=== PATIENT | male | born 1945 | race Caucasian/White ===

== ENCOUNTER 2023-09-19 08:58 | Outpatient (CLI) | payer MEDICARE, SELFPAY ==
--- NOTE | 2023-09-19 11:30 | NEURO_ITS ---
Impression: # Complains of left 4th and 5th finger numbness with difficulty to relax hand. # No Carpal Tunnel Syndrome. # Left ulnar neuropathy across the elbow. # Mildly abnormal needle/EMG exam without myotonia or fibrillations. Nerve Conduction Studies Anti Sensory Summary Table Stim Site NR Peak (ms) P-T Amp (?V) Site1 Site2 Delta-P (ms) Dist (cm) Vaibhav (m/s) Left Median Anti Sensory (2-3nd Digit) Wrist 2.6 43.2 Wrist 2-3nd Digit 2.6 14.0 54 Wrist 2.8 33.3 Wrist 2-3nd Digit 2.6 14.0 54 Left Radial Anti Sensory (Base 1st Digit) Wrist 2.0 13.7 Wrist Base 1st Digit 2.0 0.0 Left Ulnar Anti Sensory (5th Digit) NO RESPONSE Wrist NR Wrist 5th Digit 14.0 Motor Summary Table Stim Site NR Onset (ms) O-P Amp (mV) Site1 Site2 Delta-0 (ms) Dist (cm) Vaibhav (m/s) Left Median Motor (Abd Poll Brev) Wrist 2.8 2.0 Elbow Wrist 4.5 26.0 58 Elbow 7.3 1.5 Left Ulnar Motor (Abd Dig Minimi) Wrist 2.3 4.0 A Elbow Wrist 6.5 30.0 46 A Elbow 8.8 2.6 B Elbow Wrist 3.6 21.0 58 B Elbow 5.9 2.6 F Wave Studies NR F-Lat (ms) L-R F-Lat (ms) Left Median (Mrkrs) (Abd Poll Brev) 28.05 Left Ulnar (Mrkrs) (Abd Dig Min) 29.17 EMG Side Muscle Nerve Root Ins Act Fibs Amp Dur Recrt Comment Left 1stDorInt Ulnar C8-T1 Nml Nml Nml >12ms +2 Left Ext Indicis Radial (Post Int) C7-8 Nml Nml Nml Nml Nml Left Ext Digitorum Radial (Post Int) C7-8 Nml Nml Nml Nml Nml Left BrachioRad Radial C5-6 Nml Nml Nml Nml Nml Left PronatorTeres Median C6-7 Nml Nml Nml Nml Nml Left Abd Poll Brev Median C8-T1 Nml Nml Nml Nml Nml Left ABD Dig Min Ulnar C8-T1 Nml Nml Nml >12ms +2 MTDD
== END 2023-09-19 08:59 | disposition home or self-care (01) ==
PROVIDERS: PCP Internal Medicine Infectious Disease; Visit Provider Internal Medicine Infectious Disease
DX: G62.9 Polyneuropathy, unspecified (principal); G56.22 Lesion of ulnar nerve, left upper limb
CPT/HCPCS: 95886; 95909

== ENCOUNTER 2024-03-07 13:38 | Outpatient (CLI) | payer MEDICARE, SELFPAY ==
--- NOTE | ~2024-03-07 | PE_ITS ---
EXAMINATION: PET_PETPSMAST_PT DATE: 03/07/2024 15:54 INDICATION: Prostate cancer TECHNIQUE: 4.956 mCi of Illucix Ga-68([id number]) was administered i.v. Low dose computed parviz graphy (CT) images were acquired from the base of the brain to the base of the brain to the proximal thighs for attenuation correction and anatomic localization. Positron emission tomography (PET) image s were acquired in the same distribution beginning 82 minutes after injection. Images including fused PET/CT images were reconstructed in axial, coronal, and sagittal planes. Automated exposure control technique was employed. The dose-length product was 1162.07mGy-cm. COMPARISON: None FINDINGS: Head/neck: Typical pattern of symmetric physiologic increased activity in the lacrimal, parotid and submandibula r glands as well as along the mucosa of the nasal and oral cavities, pharynx and hypopharynx. No path ologically enlarged cervical lymphadenopathy or suspicious foci of increased uptake in the visualized head or neck. Chest: Mild dependent atelectasis in bilateral lower lobes. Small calcified nodule at the lingula consistent with old granulomatous disease. No suspicious pulmonary nodules, pneumonia, pulmonary edema or pleur al effusion. Heart size is normal. Atherosclerotic coronary artery calcifications. No pericardial eff usion. Thoracic aorta is normal in caliber. No pathologically enlarged or PSMA avid thoracic lymphade nopathy. Small sliding-type hiatal hernia. Abdomen/pelvis/proximal thighs: Physiologic renal accumulation and excretion of activity in the kidneys, bladder and along portions o f ureters. There is a focus of increased uptake with maximal SUV of 12.6 positioned inferiorly and sl ightly to the left of midline in the enlarged prostate which measures 6.0 x 4.7 cm. Normal degree and slightly heterogenous pattern of increased uptake throughout the liver and spleen without radiologic correlate or dominant PSMA avid lesion. The gallbladder, pancreas and bilateral adrenal glands are n ormal. Moderate uptake scattered throughout the bowels with typical duodenal and proximal jejunal pre dominance and without radiologic correlate, also likely physiologic. No other abnormal foci of increa sed uptake or pathologically enlarged lymphadenopathy in the abdomen, pelvis or proximal thighs. Musculoskeletal: Severe cervical and lumbar spondylosis and moderate intervening thoracic spondylosis. Mild T9 and T10 10 compression fractures. There are no suspicious lytic, blastic or PSMA avid bone lesions to sugges t osseous metastatic disease. IMPRESSION: 1. Region of increased uptake centrally within the enlarged prostate consistent with primary prostate cancer. No evident metastatic disease. Reviewed, dictated and finalized at location A. [facility] [employer]
--- OUTSIDE RECORDS SUMMARY | 2024-03-07 14:21 | XMS_ITS | Data Portability ---
Author Organization [place] [facility], Main Office Address [address] [place] [address] Assessment Encounter Date Assessment Date Assessment LastModified by Organization Details LastModified Time 09/20/2023 09/20/2023 Assessment: BRENDA PLMD Narcolepsy Hypoventilation Plan: The following were reviewed and explained to the patient: primary care/referral note General information on sleep disordered breathing, evaluation of sleep disordered breathing, treatment with PAP therapy, and living with PAP therapy were covered. Chapter 1 of educational DVD was shown. PSG is medically necessary to determine the degree of and management of sleep apnea. We discussed with the patient the impact of weight on: Sleep disordered breathing Hypertension GREGG We discussed with the patient the benefit of PAP therapy on: Sleep disordered breathing Hypertension GREGG Educated the patient on sleep hygiene measures. Relaxing rituals to rest easy, understanding foods with positive and negative impact on sleep, creating a peaceful sleep environment, timing of exercise, using herbal sleep aids, and practicing sleep-friendly meditation were covered. To determine how much sleep is needed, the patient will assess where he falls on the spectrum, examine what lifestyle factors such as work schedules and stress are affecting the quality and quantity of sleep. In general, adults need 7-9 hours of sleep. Educated the patient regarding foods that promote sleep. These include but are not limited to cherries, bananas, toast, oatmeal, and warm milk. Educated the patient regarding foods and drinks to avoid before bedtime. These include but are not limited to aged cheese, chocolate, spicy foods, tomato-based sauces, soy, ginseng tea and processed meat. Advocated influenza vaccination annually and pneumonia vaccination TABITHA. Advocated weight loss through diet and exercise. Patient's ideal body weight according to height and gender is up to 140 lbs. Encouraged patient to adjust caloric intake to maintain/achieve ideal body weight, emphasizing on fruits, vegetables, whole grains, and fat-free or low-fat products. These include lean meats, poultry, fish, beans, eggs, and nuts and foods that are low in saturated fats, trans-fats, cholesterol, salt (sodium), and glycemic index. Stressed the importance of regular exercise up to the patient's capacity limits. In this case, we recommend 20 min daily walking, 2 days a week of resistance training. Patient to monitor BP daily and bring records to PCP for further management. Follow-up: 1 week after diagnostic sleep study [email or web address] Not available 09/20/2023 13:20:54 Plan of Treatment Reminders Order Date Submit Date Provider Last Modified By Organization Details Last Modified Time Details Appointments None recorde d. Lab None recorde d. Referral None recorde d. Procedures None recorde d. Surgeries None recorde d. Imaging polysom nogram, diagnos tic, 6 yrs or older 024 09/20/19 24 [email or web address] [facility], [address] [place], [address], 4 10:10:05 Medication Orders None recorde d. Patient TargetsNo targets recorded. Patient InstructionsNo instructions recorded. Reason for Referral None Reported. Problems Name Problem SNOMED Code Status Onset Date Resolution Date Notes Provider Name and Address Organization Details Recorded Time Benign prostatic hyperplasia 841607571 Active Not Available 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 Medical Equipment None Reported. Allergies Allergen ID Allergen Name Allergen Category Reaction Reaction Severity Criticality Documentation Date Start Date Code Code System Note Provider Name and Address Organization Details Recorded Time 96561 Flomax medicatio n dizziness Not available Not available 09/03/2023 19195 3 RxNorm Dangelo Ray MD [address], [address], [place], [address] [place] [address] - [facility] 14:57:23 Medications Name Sig Start Date Stop Date Status Note LastModified by Organization Details LastModified Time losartan 50 mg tablet TAKE ONE TABLET BY MOUTH EVERY MORNING FOR BLOOD PRESSURE active Not Available Not Available No t Available tamsulosin 0.4 mg capsule TAKE 1 CAPSULE DAILY active Not Available Not Available No t Available Cipro 500 mg tablet Take 1 tablet(s) every 12 hours by oral route starting one day before the biopsy. 09/02 completed Not Available Not Available Not Available losartan 25 mg tablet TAKE ONE TABLET BY MOUTH EVERY DAY FOR BLOOD PRESSURE 09/19 completed Not Available Not Available Not Available Vigamox 0.5 % eye drops 09/02 completed Not Available Not Available Not Available Boostrix Tdap 2.5 Lf unit-8 mcg-5 Lf/0.5 mL intramuscul ar syringe 09/02 completed Not Available Not Available Not Available Zostavax (PF) 19,400 unit/0.65 mL subcutaneou s suspension 09/02 completed Not Available Not Available Not Available Durezol 0.05 % eye drops 09/02 completed Not Available Not Available Not Available Prevnar 13 (PF) 0.5 mL intramuscul ar syringe 09/02 completed Not Available Not Available Not Available Suprep Bowel Prep Kit 17.5 gram-3.13 gram-1.6 gram oral solution 09/02 completed Not Available Not Available Not Available Ilevro 0.3 % eye drops,suspe nsion 09/02 completed Not Available Not Available Not Available Fluvirin 9606-9050 45 mcg (15 mcg x 3)/0.5 mL intramuscul ar suspension 09/02 completed Not Available Not Available Not Available Fluvirin 2333-3059 45 mcg (15 mcg x 3)/0.5 mL intramuscul ar suspension 09/02 completed Not Available Not Available Not Available Fluzone High-Dose 9039-7184 (PF) 180 mcg/0.5 mL intramuscul ar syringe 09/02 completed Not Available Not Available Not Available Vitals Date Recorded Body weight Body mass index (BMI) Body height Body temperature Heart rate Oxygen saturation Oxygen saturation in Arterial blood by Pulse oximetry Systolic blood pressure Diastolic blood pressure Provider Name and Address Organization Details Last Updated DateTime 61764.1 7 g 36.6 kg/m2 162.56 cm 98.2 [degF] 67 /min 97 % 97 % 124 mm[Hg] 70 mm[Hg] Daniella Durand MA [facility] 12:44:55 Date Recorded Heart rate Respiratory rate Provider N sherry and Address Organization Details Last Updated DateTime 09/20/2023 67 /min 15 /min Dangelo Ray MD [address] [facility], [facility] [address], [place], [address], [facility] 09/20/2023 13:29:01 Social History Question Answer Notes LastModified by Organizat ion Details LastModified Time Tobacco Smoking Status Never Smoker Daniella Durand MA null, [place] [employer] [facility] 09/20/2023 12:40:41 What Is Your Level Of Alcohol Consumption? Occasional Information not available 09/20/2023 What Is Your Level Of Caffeine Consumption? Occasional Information not available 09/20/2023 In The 14 Days Before Symptom Onset, Have You Had Close Contact With A Laboratory-confirm ed COVID-19 While That Case Was Ill? No Information n ot available 09/20/2023 In The 14 Days Before Symptom Onset, Have You Had Close Contact With A Person Who Is Under Investigation For COVID-19 While That Person Was Ill? No Information not available 09/20/2023 What Type Of Diet Are You Following? REGULAR Information n ot available 09/20/2023 Do You Have An Electrostatic Air Filter? No Information not available 09/20/2023 Do You Have A Humidifier? No Information not available 09/20/2023 Do You Have Moisture Problems In Your Home? No Information not available 09/20/2023 What Was The Date Of Your Most Recent Tobacco Screening? 09/20/2023 Information not available 09/20/2023 Do You Have Any Pets? No Information not available 09/20/2023 Do You Use Your Seat Belt Or Car Seat Routinely? Yes Information not available 09/20/2023 Do You Have Smoke And Carbon Monoxide Detectors In Your Home? Yes Information not available 09/20/2023 Are You Passively Exposed To Smoke? No Information no t available 09/20/2023 Do You Feel Stressed (tense, Restless, Nervous, Or Anxious, Or Unable To Sleep At Night)? [id number] Information not available 09/20/2023 Do You Use Any Illicit Or Recreational Drugs? No Information not available 09/20/2023 Do You Use Sunscreen Routinely? Yes Information not available 09/20/2023 Have You Recently Traveled Abroad? No Information not available 09/20/2023 Do You Have Any Dietary Restrictions? No Information not available 09/20/2023 Sex: Unknown Functional Status Question Answer Note LastModified by Organization D etails LastModified Time What is your exercise level? Moderate Information not available 09/20/2023 Mental Status None recorded. Family History Relationship Description Onset Age of this Age Resolved Age Notes LastModified by Organization Details LastModified Time Mother Cerebrovascu lar accident [email or web address] Not available 14:51:35 Mother Coronary arterioscler osis [email or web address] Not available 2023 14:51:46 Mother Diabetes mellitus [email or web address] Not available 2023 14:51:53 Mother Hypertensive disorder [email or web address] Not available 2023 14:52:18 Mother Hyperlipidem ia [email or web address] Not available 2023 14:52:33 Mother Myocardial infarction [email or web address] Not available 09/02 14:52:42 Sister Migraine [email or web address] Not available 0 09/03/2023 14:54:31 Maternal Grandfather Coronary arterioscler osis [email or web address] Not available 2023 13:21:44 Maternal Grandfather [employer] workers' pneumoconios is [email or web address] Not available 2023 13:21:58 Maternal Grandmother Alzheimer's disease [email or web address] Not available 2023 13:22:14 Paternal Grandfather Myocardial infarction [email or web address] Not available 09/19 13:22:27 Paternal Grandmother Congestive heart failure [email or web address] Not available 2023 13:23:08 Paternal Aunt Malignant tumor of lung [email or web address] Not available 2023 13:23:52 Father Malignant tumor of prostate [email or web address] Not available 2023 13:24:17 Brother AIDS [email or web address] Not available 13:24:43 Medical History No medical history recorded. Past Encounters Encounter ID Performer Location Encounter Start Date Encounter Closed Date Diagnosis/Indication Diagnosis SNOMED-CT Code Diagnosis ICD10 Code Diagnosis Note [id number] Dangelo Ray MD [facility] [address] [address] 09/20/2023 12:08:31 09/21/2023 09:14:45 Sleep apnea 34462112 G47.30 G47.33 G47.36 G47.61 Health Concerns Section Related Observation LastModified by Organization Detai ls LastModified Time None Recorded Concern Status LastModified by Organization Details LastModified Time None Recorded Advance Directives Directive None Recorded Payers Encounter Date Sequence Insurance Name Policy Number Policy Vargas Covered Member ID Vargas Member ID Guarantor Name 09/20/2023 1 [employer] (MEDICARE REPLACEMENT PPO) [id number] 1 Dwight Mchugh [id number] Dwight Mchugh Notes Date Note Type Note Provider Name and Address Organization Details Recorded Time 09/20/2023 text/html Primary care/Referring provider: Genesis Castañeda MD At home, the patient sleeps from 12:30 am to 8:30 am and wakes up by . Snoring: moderate, since 1980s. Snorting: no Choking: no Coughing: yes Gasping: no Gagging: no Sighing: no Witnessed apnea: yes Twitching or jerking of leg(s), arm(s), body, head: yes Teeth grinding: no Teeth clenching: no Sleeptalking: no Sleepwalking: no Sleep crying: no Bedwetting: no Tongue/lip/gum/anne marie k biting: no Sleeping with open mouth: yes Sleep paralysis: no Hypnagogic hallucinations: no Hypnopompic hallucinations: no Vivid dreams: no Difficulty with sleep onset: no Difficulty with sleep maintenance: yes Sleep interruptions: nocturia x 2 Patient wakes up with: fatigue, xerostomia, hoarse voice, dexterity impairment Daytime cataplexy: no Morning hypersomnolence: no Afternoon hypersomnolence: yes Caffeine sources in diet: coffee 3 cups per day, tea 1.5 glass per day, soda 1/3 glass per per day, chocolate 1 candy bar per week Associated medical and psychiatric conditions: Congestive heart failure: no Coronary artery disease: no Myocardial infarction: no Hypertension: yes Stroke: no Bronchial asthma: no Chronic obstructive pulmonary disease: no Depression: no Bipolar disorder: no Anxiety: no Panic disorder: no Posttraumatic stress disorder: no Attention deficit and hyperactivity disorder: no Obsessive Compulsive disorder: no Schizophrenia: no Schizoaffective disorder: no Personality disorder: no Chronic analgesic use: no Chronic sedative/hypnotic use: no EPWORTH SLEEPINESS SCALE (ESS) CHANCE OF DOZING SCORE 0 = would never doze 1 = slight chance of dozing 2 = moderate chance of dozing 3 = high chance of dozing SITUATION AND CHANCE OF DOZING Sitting and reading - 2 Watching television - 2 Sitting inactive in a public place (e.g. a theater or meeting) - 0 As a passenger in a car for an hour without a break - 2 Lying down to rest in the afternoon when circumstances permit - 2 Sitting and talking to someone - 0 Sitting quietly after lunch without alcohol - 2 In a car, while stopped for a few minutes in the traffic - 0 TOTAL SCORE 10 Subjectively, patient has a moderate chance of dozing. Dangelo Ray MD [address] [place] [address], [address], [place] [facility] [employer] 09/20/2023 13:31:21
--- OUTSIDE RECORDS SUMMARY | 2024-03-07 14:21 | XMS_ITS | Data Portability ---
Author Organization [facility] JESSICA Address [address] [facility] [place] [address] Assessment No assessment recorded. Plan of Treatment Reminders Order Date Submit Date Provider Last Modified By Organization Details Last Modified Time Details Appointments None recorded. Lab PSA, total, serum or plasma 2023 024 [facility], [facility], [address], [place], [address], 4 15:10:27 noninvasive colorectal cancer DNA + occult blood screening, QL, stool 2023 024 [facility] [address], [address], [place], [address], 4 16:46:54 CBC w/ auto diff 2023 024 [facility], [facility], [address], [place], [address], 4 10:20:43 urinalysis, dipstick 2023 024 [facility], [facility], [address], [place], [address], 5 12:48:41 CMP, serum or plasma 2023 024 [facility], [facility], [address], [place], [address], 4 10:20:40 lipid panel, serum 2023 024 [facility], [address], [address], [place], [address], 4 10:20:39 vitamin D, 25-hydroxy, total, serum 2023 024 [facility], [address], [address], [place], [address], 4 10:20:44 vitamin B12, serum 2023 024 [facility], [address], [address], [place], [address], 4 10:20:42 TSH, ultra-sensi tive, serum 2023 024 [facility], [address], [address], [place], [address], 4 10:20:43 HbA1c (hemoglobin A1c), blood 2023 [facility], [address], [address], [place], [address], 4 10:20:41 Referral sleep medicine referral - Apneic episodes during the recent prostate biopsy 2023 MILDRED Ray MD, [address] [place], [address], 4 12:49:25 orthopedic surgeon referral - L. ulnar neuropathy 2023 [facility], [address], [place], [address], 4 14:35:54 Procedures None recorded. Surgeries None recorded. Imaging XR, hip, unilateral, 2 or 3 view - Pain 2023 024 [facility] ([facility]), [address] [place], [address], 16:41:32 electromyog isabel + nerve conduction study - Chronic numbness of the 4th and 5th fingers of the left hand 2023 024 [facility] (Cardiology [facility]), [address] [facility] [address] [place] [address], [address], 10:06:26 Medication Orders losartan 25 mg tablet 2022 024 [facility], [address], [id number], 18:21:20 Patient TargetsNo targets recorded. Patient Instructions Encounter Date Encounter Id Patient Instructions Last Modified By Organization Details Last Modified Time 06/15/2022 [id number] A healthy lifestyle: care instructions [facility] Not available 06/15/2022 13:00:34 A healthy lifestyle: care instructions [facility] Not available 06/15/2022 13:00:34 benign prostatic hyperplasia: care instructions [facility] Not available 06/15/2022 13:00:35 01/11/2023 [id number] A healthy lifestyle: care instructions [facility] Not available 01/11/2023 15:45:38 04/05/2023 [id number] learning about high blood pressure jhsieh Not available 04/05/2023 16:46:41 08/09/2023 [id number] sleep apnea: car e instructions [facility]ao Not available 08/09/2023 15:58:53 hearing loss: care instructions [facility] Not available 08/09/2023 15:59:08 learning about high blood pressure o[facility]ao Not available 08/09/2023 15:59:44 neuropathic pain : care instructions [facility] Not available 08/09/2023 15:57:21 body mass index: care instructions [facility] Not available 08/09/2023 15:36:41 learning about healthy weight oajao Not available 08/09/2023 15:36:42 Labs Cologuard a s previously ordered Sleep medicine Xray Follow up in 6 weeks oajao Not available 08/09/2023 16:00:58 09/21/2023 [id number] Orthopedics Lab s as previously ordered Follow up in 6 months and PRN oajao Not available 09/21/2023 15:12:58 Pt education on ulnar neuropathy oajao Not available 09/21/2023 15:30:00 Reason for Referral Sleep Medicine Referral for Sleep apnea Apneic episodes during the recent prostate biopsy Apneic episodes during the recent prostate biopsy Referring Physician: Genesis Castañeda, Internal Medicine, Encounter Date: 08/09/2023 Orthopedic Surgeon Referral for Ulnar neuropathy of left arm L. ulnar neuropathy L. ulnar neuropathy Referring Physician: Genesis Castañeda, Internal Medicine, Encounter Date: 09/21/2023 Results Created Date Observation Date Name Description Value Unit Range Abnormal Flag Note LastModifiedBy Organization Detail LastModifiedTime 04/05/19 24 04/06/2023 PROST ATE-S PECIF IC AG prostate specific Ag 9.1 NG/mL 0.0-4. 0 above high normal Theresa ECLIA metho dolog y. Accor ding to the Ameri can [employer] g[employer] iatio n, Serum PSA shoul d decre ase and remai n at undet ectab le level s after radic al prost atect padilla. The AUA defin es bioch emica l recur rence as an initi al PSA value 0.2 ng/mL or great er follo wed by a subse quent confi rmato ry PSA value 0.2 ng/mL or great er. Value s obtai sarika with diffe rent assay metho ds or kits canno t be used inter lexie nicole . Resul ts canno t be inter prete d as absol chilkat evide nce of the prese nce or absen ce of lila dewitt se. Not Available [facility] ([facility]) [address] [facility], [place], [address], 04/06/2023 15:10:27 09/22/19 24 09/23/2023 LIPID PANEL cholesterol, total 219 mg/dL 100-19 9 above high normal Not Available [facility] ([facility]) [address] [place], [address], 09/23/2023 10:20:39 09/22/19 24 09/23/2023 LIPID PANEL triglyceride s 104 mg/dL 0-149 Not Available [facility] ([facility]) [address] [place], [address], 09/23/2023 10:20:39 09/22/19 24 09/23/2023 LIPID PANEL HDL cholesterol 63 mg/dL >39 Not Available [facility]) [address] [place], [address], 09/23/2023 10:20:39 09/22/19 24 09/23/2023 LIPID PANEL VLDL cholesterol vidhya 18 mg/dL 5-40 Not Available [facility] ([facility]) [address] [place], [address], 09/23/2023 10:20:39 09/22/19 24 09/23/2023 LIPID PANEL LDL chol calc ([facility]) 138 mg/dL 0-99 above high normal Not Available [facility] ([facility]) [address] [place], [address], 09/23/2023 10:20:39 09/22/19 24 09/23/2023 COMP. METAB OLIC PANEL (14) glucose 105 mg/dL 70-99 above high normal Not Available [facility] ([facility]) [address] [place], [address], 09/23/2023 10:20:40 09/22/19 24 09/23/2023 COMP. METAB OLIC PANEL (14) BUN 14 mg/dL 8-27 Not Available [facility] ([facility]) [address] [place], [address], 09/23/2023 10:20:40 09/22/19 24 09/23/2023 COMP. METAB OLIC PANEL (14) creatinine 0.78 mg/dL 0.76-1 .27 Not Available [facility] ([facility]) [address] [facility], [place], [address], 09/23/2023 10:20:40 09/22/19 24 09/23/2023 COMP. METAB OLIC PANEL (14) eGFR 92 mL/mi n/1.7 3 >59 Not Available [facility] ([facility]) [address] [facility], [place], [address], 09/23/2023 10:20:40 09/22/19 24 09/23/2023 COMP. METAB OLIC PANEL (14) BUN/creatini ne ratio 18 10-24 Not Available [facility] ([facility]) [address] [facility], [place], [address], 09/23/2023 10:20:40 09/22/19 24 09/23/2023 COMP. METAB OLIC PANEL (14) sodium 140 mmol/ L 134-14 4 Not Available [facility] ([facility]) [address] [facility], [place], [address], 09/23/2023 10:20:40 09/22/19 24 09/23/2023 COMP. METAB OLIC PANEL (14) potassium 4.8 mmol/ L 3.5-5. 2 Not Available [facility] ([facility]) [address] [facility], [place], [address], 09/23/2023 10:20:40 09/22/19 24 09/23/2023 COMP. METAB OLIC PANEL (14) chloride 103 mmol/ L 96-106 Not Available [facility] ([facility]) [address] [facility], [place], [address], 09/23/2023 10:20:40 09/22/19 24 09/23/2023 COMP. METAB OLIC PANEL (14) carbon dioxide, total 23 mmol/ L 20-29 Not Available [facility] ([facility]) [address] [facility], [place], [address], 09/23/2023 10:20:40 09/22/19 24 09/23/2023 COMP. METAB OLIC PANEL (14) calcium 9.4 mg/dL 8.6-10 .2 Not Available [facility] ([facility]) [address] [facility], [place], [address], 09/23/2023 10:20:40 09/22/19 24 09/23/2023 COMP. METAB OLIC PANEL (14) protein, total 6.9 g/dL 6.0-8. 5 Not Available [facility] ([facility]) [address] [facility], [place], [address], 09/23/2023 10:20:40 09/22/19 24 09/23/2023 COMP. METAB OLIC PANEL (14) albumin 4.2 g/dL 3.8-4. 8 Not Available [facility] ([facility]) [address] [facility] [place], [address], 09/23/2023 10:20:40 09/22/19 24 09/23/2023 COMP. METAB OLIC PANEL (14) globulin, total 2.7 g/dL 1.5-4. 5 Not Available [facility] ([facility]) [address] [facility], [place], [address], 09/23/2023 10:20:40 09/22/19 24 09/23/2023 COMP. METAB OLIC PANEL (14) bilirubin, total 0.3 mg/dL 0.0-1. 2 Not Available [facility] ([facility]) [address] [facility], [place], [address], 09/23/2023 10:20:40 09/22/19 24 09/23/2023 COMP. METAB OLIC PANEL (14) alkaline phosphatase 45 IU/L 44-121 Not Available [facility]) [address] [place], [address], 09/23/2023 10:20:40 09/22/19 24 09/23/2023 COMP. METAB OLIC PANEL (14) AST (SGOT) 20 IU/L 0-40 Not Available [facility] ([facility]) [address] [place], [address], 09/23/2023 10:20:40 09/22/19 24 09/23/2023 COMP. METAB OLIC PANEL (14) ALT (SGPT) 22 IU/L 0-44 Not Available [facility] ([facility]) [address] [place], [address], 09/23/2023 10:20:40 09/22/19 24 09/22/2023 UNABL E TO VOID unable to void Commen t Patie nt unabl e to void. Urine to be colle cted at a later date. Not Available [facility] ([facility]) [address] [place], [address], 09/23/2023 10:20:41 09/22/19 24 09/23/2023 HEMOG LOBIN A1C hemoglobin A1C 6.1 % 4.8-5. 6 above high normal Predi abete s: 5.7 - 6.4 Diabe kaleb: >6.4 Glyce agatha contr ol for adult s with diabe kaleb: <7.0 Not Available [facility] ([facility]) [address] [place], [address], 09/23/2023 10:20:41 09/22/19 24 09/23/2023 VITAM IN B12 vitamin B12 650 pg/mL 232-12 45 Not Available [facility] ([facility]) [address] [place], [address], 09/23/2023 10:20:42 09/22/19 24 09/23/2023 TSH TSH 5.040 uIU/m L 0.450- 4.500 above high normal Not Available [facility] ([facility]) [address] [facility], [place], [address], 09/23/2023 10:20:43 09/22/19 24 09/23/2023 CBC WITH DIFFE RENTI AL/PL ATELE T WBC 5.8 x10e3 /uL 3.4-10 .8 Not Available [facility] ([facility]) [address] [facility], [place], [address], 09/23/2023 10:20:43 09/22/19 24 09/23/2023 CBC WITH DIFFE RENTI AL/PL ATELE T RBC 4.76 x10e6 /uL 4.14-5 .80 Not Available [facility] ([facility]) [address] [place], [address], 09/23/2023 10:20:43 09/22/19 24 09/23/2023 CBC WITH DIFFE RENTI AL/PL ATELE T hemoglobin 14.5 g/dL 13.0-1 7.7 Not Available [facility] ([facility]) [address] [place], [address], 09/23/2023 10:20:43 09/22/19 24 09/23/2023 CBC WITH DIFFE RENTI AL/PL ATELE T hematocrit 44.7 % 37.5-5 1.0 Not Available [facility] ([facility]) [address] [place], [address], 09/23/2023 10:20:43 09/22/19 24 09/23/2023 CBC WITH DIFFE RENTI AL/PL ATELE T MCV 94 fL 79-97 Not Available [facility] ([facility]) [address] [place], [address], 09/23/2023 10:20:43 09/22/19 24 09/23/2023 CBC WITH DIFFE RENTI AL/PL ATELE T MCH 30.5 pg 26.6-3 3.0 Not Available [facility] ([facility]) [address] [facility], [place], [address], 09/23/2023 10:20:43 09/22/19 24 09/23/2023 CBC WITH DIFFE RENTI AL/PL ATELE T MCHC 32.4 g/dL 31.5-3 5.7 Not Available [facility] ([facility]) [address] [facility], [place], [address], 09/23/2023 10:20:43 09/22/19 24 09/23/2023 CBC WITH DIFFE RENTI AL/PL ATELE T RDW 13.4 % 11.6-1 5.4 Not Available [facility] ([facility]) [address] [facility], [place], [address], 09/23/2023 10:20:43 09/22/19 24 09/23/2023 CBC WITH DIFFE RENTI AL/PL ATELE T platelets 265 x10e3 /uL 150-45 0 Not Available [facility] ([facility]) [address] [facility], [place], [address], 09/23/2023 10:20:43 09/22/19 24 09/23/2023 CBC WITH DIFFE RENTI AL/PL ATELE T neutrophils 52 % notest ab. Not Available [facility] ([facility]) [address] [facility], [place], [address], 09/23/2023 10:20:43 09/22/19 24 09/23/2023 CBC WITH DIFFE RENTI AL/PL ATELE T lymphs 33 % notest ab. Not Available [facility] ([facility]) [address] [facility], [place], [address], 09/23/2023 10:20:43 09/22/19 24 09/23/2023 CBC WITH DIFFE RENTI AL/PL ATELE T monocytes 9 % notest ab. Not Available [facility] ([facility]) [address] [facility], [place], [address], 09/23/2023 10:20:43 09/22/19 24 09/23/2023 CBC WITH DIFFE RENTI AL/PL ATELE T eos 5 % notest ab. Not Available [facility] ([facility]) [address] [facility], [place], [address], 09/23/2023 10:20:43 09/22/19 24 09/23/2023 CBC WITH DIFFE RENTI AL/PL ATELE T basos 1 % notest ab. Not Available [facility] ([facility]) [address] [facility], [place], [address], 09/23/2023 10:20:43 09/22/19 24 09/23/2023 CBC WITH DIFFE RENTI AL/PL ATELE T neutrophils (absolute) 3.0 x10e3 /uL 1.4-7. 0 Not Available [facility] ([facility]) [address] [facility], [place], [address], 09/23/2023 10:20:43 09/22/19 24 09/23/2023 CBC WITH DIFFE RENTI AL/PL ATELE T lymphs (absolute) 1.9 x10e3 /uL 0.7-3. 1 Not Available [facility] ([facility]) [address] [facility], [place], [address], 09/23/2023 10:20:43 09/22/19 24 09/23/2023 CBC WITH DIFFE RENTI AL/PL ATELE T monocytes(ab solute) 0.5 x10e3 /uL 0.1-0. 9 Not Available [facility] ([facility]) [address] [facility], [place], [address], 09/23/2023 10:20:43 09/22/19 24 09/23/2023 CBC WITH DIFFE RENTI AL/PL ATELE T eos (absolute) 0.3 x10e3 /uL 0.0-0. 4 Not Available [facility] ([facility]) [address] [facility], [place], [address], 09/23/2023 10:20:43 09/22/19 24 09/23/2023 CBC WITH DIFFE RENTI AL/PL ATELE T baso (absolute) 0.1 x10e3 /uL 0.0-0. 2 Not Available [facility] ([facility]) [address] [facility], [place], [address], 09/23/2023 10:20:43 09/22/19 24 09/23/2023 CBC WITH DIFFE RENTI AL/PL ATELE T immature granulocytes 0 % notest ab. Not Available [facility] ([facility]) [address] [facility], [place], [address], 09/23/2023 10:20:43 09/22/19 24 09/23/2023 CBC WITH DIFFE RENTI AL/PL ATELE T immature grans (abs) 0.0 x10e3 /uL 0.0-0. 1 Not Available [facility] ([facility]) [address] [place], [address], 09/23/2023 10:20:43 09/22/19 24 09/23/2023 VITAM IN D, 25-HY DROXY vitamin D, 25-hydroxy 57.8 NG/mL 30.0-1 00.0 Vitam in D defic iency has been defin ed by the Insti tute of Medic ine and an Endoc rine Socie ty pract ice guide line as a level of serum 25-OH vitam in D less than 20 ng/mL (1,2) . The Endoc rine Socie ty went on to furth er defin e vitam in D insuf ficie ncy as a level betwe en 21 and 29 ng/mL (2). 1. IOM (Inst itute of Medic ine). 2010. Elder ry refer ence re es for calci um and D. Arina bean [place]: The [facility] . 2. Leonard steiner MF, Carol Ann chaudhary [place], Kristina off-F errar i ASENCIO, et al. Evalu ation , treat ment, and preve ntion of vitam in D defic iency : an Endoc rine Socie ty clini vidhya pract ice guide line. JCEM. 2010; 96(7) :1911 -30. Not Available [facility] ([facility]) [address], [place], [address], 09/23/2023 10:20:44 09/20/19 24 09/19/2023 elect romyo gram + nerve condu ction study No observ ation record ed. [facility] [address], [place], [address], 09/27/2023 10:55:30 11/23/19 24 11/23/2023 XR, hip, unila teral , 2 or 3 view No observ ation record ed. [facility] [address], [place], [address], 12/01/2023 09:42:45 Result Notes None recorded. Problems Name Problem SNOMED Code Status Onset Date Resolution Date Notes Provider Name and Address Organization Details Recorded Time Sleep apnea 34885821 Active 2023 Genesis Castañeda MD Attn: Flavia pacheco,[address] [facility], [place], [address], [facility] 4 15:57:44 Essential hypertensio n 86976856 Active 2023 Genesis Castañeda MD Attn: Flavia g,[address] [facility], [place], [address], [facility] - [facility] 4 15:59:42 Ulnar neuropathy of left arm 1369875041201 07 Active 2023 Genesis Castañeda MD Attn: Flavia g,[address] [facility], [place], [address], [facility] 4 15:06:48 Local infection of wound 20339510 Active Verna Jeffery MD Attn: Flavia pacheco,[address] [facility], [place], [address], [place] [facility] 5 11:23:56 Benign prostatic hyperplasia 942538108 Active Verna Jeffery MD Attn: Flavia pacheco,[address] [facility], [place], [address], [place] [facility] 5 11:23:56 Lesion of skin of face 197668580805 Active Verna Jeffery MD Attn: Flavia pacheco,[address] [facility], [place], [address], [place] [facility] 5 11:23:56 Right sided chest pain 921932338 Active Verna Jeffery MD Attn: Flavia pacheco,[address] [facility], [place], [address], [place] [facility] 6 13:37:19 Problem Notes None recorded. Procedures Surgical History Date Name Laterality Status Provider Name and Address Organization Details Recorded Time prostate specific antigen measurement completed Sam Ernandez [place] [facility] 07/24/2020 11:36:27 Eye Surgery completed Sam Ernandez [place] [facility] 07/24/2020 11:23:57 Prostate Biopsy completed Sam Ernandez [place] [facility] 12/18/2014 10:32:13 Imaging Results Imaging Date Name Status LastModified by Organization Details LastModified Time 09/19/2023 electromyogram + nerve conduction study completed [facility] [address] [address], [place], [address], 09/27/2023 10:55:30 11/23/2023 XR, hip, unilateral, 2 or 3 view completed [facility] [address] [place], [address], 12/01/2023 09:42:45 Procedure Notes None recorded. Medical Equipment None Reported. Allergies Allergen ID Allergen Name Allergen Category Reaction Reaction Severity Criticality Documentation Date Start Date Code Code System Note Provider Name and Address Organization Details Recorded Time [id number] tamsulosi n medicatio n Not available Not available Not available 07/24/2020 85705 RxNorm Not Available Not Available Not Available [id number] Flomax medicatio n dizziness Not available Not available 12/18/2014 27034 3 RxNorm Not Available Not Available Not Available Medications Name Sig Start Date Stop Date Status Note LastModified by Organization Details LastModified Time losartan 50 mg tablet TAKE ONE TABLET BY MOUTH EVERY MORNING FOR BLOOD PRESSURE active Not Available Not Available No t Available Viagra 50 mg tablet Take 1 tablet every day by oral route at bedtime for 8 days. 12/04 completed Not Available Not Available Not Available sulfamethox azole 800 mg-trimetho prim 160 mg tablet Take 1 tablet every 12 hours by oral route with meals for 5 days. 07/24 completed Not Available Not Available Not Available tamsulosin 0.4 mg capsule 07/24 completed Not Available Not Available Not Available polymyxin B sulfate 10,000 unit-trimet hoprim 1 mg/mL eye drops 12/04 completed Not Available Not Available Not Available losartan 25 mg tablet Take 1 tablet every day by oral route as directed for 90 days. 03/29 completed Not Available Not Available Not Available Vigamox 0.5 % eye drops 07/24 completed Not Available Not Available Not Available saw palmetto active Not Available Not Available Not Available Zostavax (PF) 19,400 unit/0.65 mL subcutaneou s suspension 07/24 completed Not Available Not Available Not Available Durezol 0.05 % eye drops 07/24 completed Not Available Not Available Not Available Prevnar 13 (PF) 0.5 mL intramuscul ar syringe 12/04 completed Not Available Not Available Not Available Ilevro 0.3 % eye drops,suspe nsion 07/24 completed Not Available Not Available Not Available Vitals Date Recorded Body height Provider Name an d Address Organization Details Last Updated DateTime 06/15/2022 159.39 cm Regine De La Carlton agustin [place] - [facility] 06/15/2022 12:10:37 Date Recorded Body mass index (BMI) Body weight Provider Name and Address Organization Details Last Updated DateTime 06/15/2022 41.1 kg/m2 125973.25 g Regine Gallagher [facility] 06/15/2022 12:16:29 Date Recorded Oxygen saturation Oxygen saturation in Arterial blood by Pulse oximetry Provider Name and Address Organization Details Last Updated DateTime 06/15/2022 95 % 95 % Regine Zapien Cruz [facility] 06/15/2022 12:20:08 Date Recorded Heart rate Provider Name an d Address Organization Details Last Updated DateTime 06/15/2022 70 /min Regine Vargas [facility] 06/15/2022 12:20:11 Date Recorded Body height Provider Name an d Address Organization Details Last Updated DateTime 01/11/2023 159.39 cm Lizzette Chapman [facility] 01/11/2023 14:56:56 Date Recorded Body mass index (BMI) Body weight Provider Name and Address Organization Details Last Updated DateTime 01/11/2023 40.2 kg/m2 015630.28 g Lizzette Chapman [facility] 14:57:08 Date Recorded Heart rate Provider Name an d Address Organization Details Last Updated DateTime 01/11/2023 70 /min Lizzette Chapman [facility] 01/11/2023 14:58:36 Date Recorded Oxygen saturation Oxygen saturation in Arterial blood by Pulse oximetry Provider Name and Address Organization Details Last Updated DateTime 01/11/2023 96 % 96 % Lizzette Chapman [facility] 01/11 14:58:41 Date Recorded Body height Provider Name an d Address Organization Details Last Updated DateTime 04/05/2023 159.39 cm Lizzette Chapman [facility] 04/05/2023 16:08:36 Date Recorded Body mass index (BMI) Body weight Provider Name and Address Organization Details Last Updated DateTime 04/05/2023 40.5 kg/m2 999737.47 g Lizzette Chapman [facility] 16:08:51 Date Recorded Heart rate Provider Name an d Address Organization Details Last Updated DateTime 04/05/2023 77 /min Lizzette Chapman MA [facility] 04/05/2023 16:10:24 Date Recorded Oxygen saturation Oxygen saturation in Arterial blood by Pulse oximetry Provider Name and Address Organization Details Last Updated DateTime 04/05/2023 96 % 96 % Lizzette Chapman [place] Jose E [facility]ARRID[facility] 04/05 16:10:29 Date Recorded Body height Provider Name an d Address Organization Details Last Updated DateTime 08/09/2023 159.39 cm Johanne Stack MA [facility] 15:11:09 Date Recorded Body mass index (BMI) Body weight Provider Name and Address Organization Details Last Updated DateTime 08/09/2023 38.4 kg/m2 13064.44 g Johanne Stack MA [facility] 08/09/2023 15:11:22 Date Recorded Heart rate Provider Name an d Address Organization Details Last Updated DateTime 08/09/2023 66 /min Johanne Stack MA [facility] 15:18:14 Date Recorded Oxygen saturation Oxygen saturation in Arterial blood by Pulse oximetry Provider Name and Address Organization Details Last Updated DateTime 08/09/2023 98 % 98 % Johanne Stack MA [facility] 08/09/2023 15:18:16 Date Recorded Respiratory rate Provider Name a nd Address Organization Details Last Updated DateTime 08/09/2023 18 /min Johanne Stack MA [facility] 024 15:18:18 Date Recorded Body height Provider Name an d Address Organization Details Last Updated DateTime 09/21/2023 159.39 cm Johanne Stack MA [facility] 14:53:20 Date Recorded Body mass index (BMI) Body weight Provider Name and Address Organization Details Last Updated DateTime 09/21/2023 38.4 kg/m2 89619.44 g Johanne Stack MA [facility] 09/21/2023 14:53:29 Date Recorded Respiratory rate Provider Name a nd Address Organization Details Last Updated DateTime 09/21/2023 16 /min Johanne Stack MA [facility] 024 14:56:50 Date Recorded Heart rate Provider Name an d Address Organization Details Last Updated DateTime 09/21/2023 62 /min Johanne Stack [facility] 024 14:58:24 Date Recorded Oxygen saturation Oxygen saturation in Arterial blood by Pulse oximetry Provider Name and Address Organization Details Last Updated DateTime 09/21/2023 97 % 97 % Johanne Stack MA [facility] 09/21/2023 14:58:26 Date Recorded Body temperature Provider Name a nd Address Organization Details Last Updated DateTime 09/21/2023 97.6 [degF] Johanne Ricever [facility] 2023 14:59:07 Date Recorded Systolic blood pressure Diastolic blood pressure Provider Name and Address Organization Details Last Updated DateTime 06/15/2022 146 mm[Hg] 72 mm[Hg] Regine Gallagher [facility] 06/15/2022 12:19:57 Date Recorded Systolic blood pressure Diastolic blood pressure Provider Name and Address Organization Details Last Updated DateTime 01/11/2023 160 mm[Hg] 78 mm[Hg] Lizzette Chapman MA [facility] 07/2022 14:59:00 Date Recorded Systolic blood pressure Diastolic blood pressure Provider Name and Address Organization Details Last Updated DateTime 04/05/2023 160 mm[Hg] 66 mm[Hg] Lizzette Chapman MA [facility] 03/10 16:10:45 Date Recorded Systolic blood pressure Diastolic blood pressure Provider Name and Address Organization Details Last Updated DateTime 08/09/2023 140 mm[Hg] 70 mm[Hg] Johanne Stack MA [facility] 08/09/2023 15:17:57 Date Recorded Systolic blood pressure Diastolic blood pressure Provider Name and Address Organization Details Last Updated DateTime 09/21/2023 124 mm[Hg] 66 mm[Hg] Johanne Stack MA [facility] 09/21/2023 14:58:15 Social History Question Answer Notes LastModified by Organizat ion Details LastModified Time Tobacco Smoking Status Never Smoker [facility] 12/18/2014 10:32:12 Do You Have An Advance Directive? No Information not available 01/11/2023 What Is Your Level Of Alcohol Consumption? Occasional Information not available 12/18/2014 Are You Blind Or Do You Have Difficulty Seeing? Yes Wears Glasses Information not available 01/11/2023 What Is Your Level Of Caffeine Consumption? Moderate Information not available 01/11/2023 Are You Currently Employed? No Information not available 01/11/2023 Are You Deaf Or Do You Have Serious Difficulty Hearing? Yes Information not available 01/11/2023 What Type Of Diet Are You Following? REGULAR Information not available 01/11/2023 Do You Or Have You Ever Used E-cigarettes Or Vape? Never Used Electronic Cigarettes Information not available 07/24/2020 What Is The Highest Grade Or Level Of School You Have Completed Or The Highest Degree You Have Received? [id number] Information not available 01/11/2023 Are There Any Guns Present In Your Home? No Information not available 01/11/2023 What Was The Date Of Your Most Recent Tobacco Screening? 09/21/2023 Information not available 09/21/2023 What Is Your Relationship Status? Information not available 01/11/2023 Do You Use Your Seat Belt Or Car Seat Routinely? Yes Information not available 01/11/2023 Do You Have Smoke And Carbon Monoxide Detectors In Your Home? Yes Information not available 01/11/2023 Do You Or Have You Ever Used Smokeless Tobacco? Never Used Smokeless Tobacco Information not available 07/24/2020 Do You Feel Stressed (tense, Restless, Nervous, Or Anxious, Or Unable To Sleep At Night)? [id number] Information not available 01/11/2023 Do You Use Any Illicit Or Recreational Drugs? No Information not available 08/09/2023 Do You Use Sunscreen Routinely? No Information not available 01/11/2023 Has Tobacco Cessation Counseling Been Provided? Yes Information not available 07/24/2020 On What Date Was Tobacco Cessation Counseling Provided? 04/05/2023 Information not available 04/05/2023 Do You Or Have You Ever Used Any Other Forms Of Tobacco Or Nicotine? Yes One Cigar Information not available 07/24/2020 Sex: Male Functional Status Question Answer Note LastModified by Organizat ion Details LastModified Time Are you able to care for yourself? Yes Information not available 01/11/2023 What is your exercise level? Occasional Information not available 01/11/2023 Mental Status None recorded. Family History Relationship Description Onset Age of this Age Resolved Age Notes LastModified by Organization Details LastModified Time Mother Cerebrovascu lar accident [email or web address] Not available 10:32:13 Mother Coronary arterioscler osis [email or web address] Not available 12/18 10:32:13 Mother Diabetes mellitus [email or web address] Not available 12/18 10:32:13 Mother Heart disease [email or web address] Not available 12/18 10:32:13 Mother Hypertensive disorder [email or web address] Not available 12/18 10:32:13 Mother Hypercholest erolemia [email or web address] Not available 12/18 10:32:13 Mother Myocardial infarction [email or web address] Not available 12/07 10:32:13 Father Suspected prostate cancer [email or web address] Not available 12/18 10:32:13 Sister Migraine Not availab le 12/18/2014 10:32:13 Medical History Condition Response High Blood Pressure Y Muscle, Joint, or Bone Problems Y GI Problems Y Skin Problems Y Immunizations Vaccine Type Date Status Note Provider Nam e and Address Organization Details Recorded Time Pneumococcal conjugate PCV 13 6 completed Sam Ernandez [place] null, [place] - [facility] 07/24/2020 11:35:40 COVID-19, mRNA, LNP-S, PF, 100 mcg/0.5mL dose or 50 mcg/0.25mL dose 1 completed Mari Gal[place], [place] [facility] 08/26/2020 09:45:19 COVID-19, mRNA, LNP-S, PF, 100 mcg/0.5mL dose or 50 mcg/0.25mL dose 1 completed Mari Gal[place] [facility] 08/26/2020 09:45:38 Influenza, adjuvanted, trivalent, PF 8 completed Regine Gallagher [place] [facility] 06/15/2022 12:16:49 Influenza, adjuvanted, quadrivalent, PF 1 completed Regine Gallagher, [place] [facility] 06/15/2022 12:16:49 COVID-19, mRNA, LNP-S, PF, 100 mcg/0.5mL dose or 50 mcg/0.25mL dose 1 completed Regine Gallagher, [place] [facility] 06/15/2022 12:16:49 Tdap 8 completed Regine Gallagher, [place] [facility] 06/15/2022 12:16:49 Pneumococcal conjugate PCV 13 6 completed Regine Gallagher, [place] [facility] 06/15/2022 12:16:49 zoster live 5 completed Regine Gallagher, [place] [facility] 06/15/2022 12:16:49 Influenza, high-dose, trivalent, PF 7 completed Regine Gallagher, [place] [facility] 06/15/2022 12:16:49 Influenza, split virus, quadrivalent, preservative 6 completed Not Available [facility] 02/23/2019 02:49:12 COVID-19, mRNA, LNP-S, bivalent, PF, 50 mcg/0.5 mL or 25mcg/0.25 mL dose 2 completed Genesis Castañeda MD Attn: [address]ing[address] [place], [address], [place] [facility] 08/09/2023 15:32:35 Influenza, adjuvanted, quadrivalent, PF 3 completed Genesis Castañeda MD Attn: Accounting[address] [place], [address], [place] [facility] 08/09/2023 15:32:44 COVID-19, mRNA, LNP-S, PF, adam-sucrose, 30 mcg/0.3 mL 3 completed Genesis Castañeda MD Attn: Accounting,[address], [place], [address], [facility] 08/09/2023 15:32:44 Influenza, high-dose, quadrivalent, PF 2 completed Verna Jeffery MD Attn: Accounting,[address], [place], [address], [facility] 12/09/2021 16:16:43 Influenza, split virus, quadrivalent, preservative 5 completed Not Available [facility] 02/23/2019 02:49:52 Past Encounters Encounter ID Performer Location Encounter Start Date Encounter Closed Date Diagnosis/Indication Diagnosis SNOMED-CT Code Diagnosis ICD10 Code Diagnosis Note [id number] Verna Jeffery MD [facility] (Adult Med) [address] [place] [address] [phone] 0 12/18/2014 09:42:36 12/18/2014 12:04:40 Local infection of wound 33502117 B99.9 Benign pro static hyperplasia 623435862 N40.0 Lesion of skin of face 6454443454 06 L98.9 Administra tion of influenza vaccine 10357344 Z23 [id number] Michelle Kearney is [facility] (Adult Med) [address] [place] [address] [id number] 04/29/2015 12:20:10 04/29/2015 18:04:10 Right sided chest pain 439926040 R07.89 [id number] Verna Jeffery MD [facility] (Adult Med) [address] [place] [address] [id number] 0 12/14/2015 11:57:43 12/14/2015 13:20:45 Needs influenza immunization 020412913 Z23 [id number] Verna Jeffery MD [facility] (Adult Med) [address] [place] [address] [id number] 0 06/06/2016 10:58:18 06/06/2016 17:20:19 Benign prostatic hyperplasia 552228376 N40.0 He is on OTC medication , he refuses the prescripti on, he supposes to have F/U with his urologist. Caregiver annual health check 655594079 Z00.00 Screening for malignant neoplasm of colon 149024325 Z12.11 Patient declines. previously he had 2 unremarkab le colonoscop y ex, except colon diverticul osis. Screening for osteoporosis 533352890 Z13.820 Patient declines. [id number] MD [facility] (Adult Med) [address] [place] [address] [id number] 0 07/24/2020 10:56:22 07/27/2020 14:26:47 Complaining of erectile dysfunction 867117871 N52.9 Discussed with patient, will try viagra. Benign pro static hyperplasia with outflow obstruction 678555467 N40.1 Can complete emptying urination. Cataract 570164256 H26.9 Left eye, will have operation in September 2020. Hypertensive disorder 38 952446 I10 Low salt , avoid NSAID or OTC decongesta nt. He refuses to take medication , 07-24-2020 . He has been warned about possible complicati ons of hypertensi on if not being treated. Mentioned on the paper which faxed to his eye doctor as well. Morbid obesity 507060732 E66.01 Diet, exercise and lose weight. [id number] Verna Jeffery MD [facility] (Adult Med) [address] [place] [address] [id number] 0 12/04/2020 14:47:14 12/04/2020 15:39:50 Hypertensive disorder 51430798 I10 Low salt , avoid NSAID or OTC decongesta nt. He refuses to take medication , 07-24-2020 . He has been warned about possible complicati ons of hypertensi on if not being treated. Mentioned on the paper which faxed to his eye doctor as well. [id number] MD [facility] (Adult Med) [address] [place] [address] [id number] 06/08/2021 12:43:32 06/09/2021 10:24:39 Hypertensive disorder 81088924 I10 Low salt , avoid NSAID or OTC decongesta nt. He refuses to take medication , 07-24-2020 . He has been warned about possible complicati ons of hypertensi on if not being treated. Mentioned on the paper which faxed to his eye doctor as well. Will continue losartan and monitoring blood pressure . Morbid obesity 866110786 E66.01 Diet, exercise and lose weight. [id number] MD [facility] Moreira (Adult Med) [address] [place] [address] [phone] 0 12/09/2021 12:34:50 12/13/2021 13:09:13 Administration of influenza vaccine 87055537 Z23 he tolerated shot well. Hearing disorder 6232060 05 H91.93 He agreed for the referral of audiology in [facility] Stephanie Grace. [phone]. [address] [place], [place]. Benign pro static hyperplasia 424801122 N40.0 He is on OTC medication , he refuses the prescripti on, he supposes to have F/U with his urologist. He had prostate biopsy greater than 10 years ago, not cancerous, but he forgot what his urologist told him, can't trace back due to too old record hospital does not keep the record. Essential hypertension 00410013 I10 He has enough losartan , will continue to monitor his blood pressure. As 12-09-2021 bp is 150/74. [id number] [facility] [address] [place] [address] [id number] 06/15/2022 11:50:41 06/17/2022 16:14:59 Morbid obesity 857795572 E66.01 Diet, exercise and lose weight. BMI is 41.1, Diverticul osis of colon 053003914 K57.30 Stable. no abdomenal pain. Benign pro static hyperplasia 833090313 N40.0 He is on OTC medication , he refuses the prescripti on, he supposes to have F/U with his urologist. He had prostate biopsy greater than 10 years ago, not cancerous, but he forgot what his urologist told him, can't trace back due to too old record hospital does not keep the record. [id number] MD Amado Moreira (Adult Med) [address] [place] [address] [id number] 01/11/2023 14:48:40 01/16/2023 14:55:34 Hypertensive disorder 73808766 I10 Low salt , avoid NSAID or OTC decongesta nt. He refuses to take medication , 07-24-2020 . He has been warned about possible complicati ons of hypertensi on if not being treated. Mentioned on the paper which faxed to his eye doctor as well. Will continue losartan and monitoring blood pressure . BP today by DR. Jeffery is 140/76, med refills. Right arm, big adult cuff,.sitt ing. 01-11-23. Morbid obesity 810624118 E66.01 Diet, exercise and lose weight. BMI is 41.1, Today BMI down to 40.2 01-11-23. [id number] MD [facility] Moreira (Adult Med) [address] [place] [address] [phone] 0 04/05/2023 15:57:07 04/10/2023 11:20:26 Essential hypertension 14744243 I10 He has enough losartan , will continue to monitor his blood pressure. As 12-09-2021 bp is 150/74. 04-05-23, bp IS 150/64 . SITTING. LEFT ARM BIG ADULT CUFF READING IS . He will take 2 pills of 25 mg /day of losartan, he has not picked up new 50 mg losartan yet. Screening for malignant neoplasm of prostate 012954305 Z12.5 He agreed. Screening for malignant neoplasm of colon 265721874 Z12.11 Patient declines. previously he had 2 unremarkab le colonoscop y ex, except colon diverticul osis. [id number] MD Amado Kirby (Adult Med) [address] [place] [address] [phone] 0 08/09/2023 14:49:17 08/11/2023 15:03:56 General examination of patient 479382292 Z00.01 Body mass index 30+ - obesity 002229580 Z68.38 Neuropathy 897419309 G62 .9 Sleep apnea 22111770 G47 .30 Decreased hearing 218497 001 H91.93 AddendumHe has hearing aids Essential hypertension 49605404 I10 Better than his last visit, but the SBP is still slightly high Prostate s pecific antigen above reference range 263265882 R97.20 Pain of le ft hip joint 1147521383 79272 M25.477 [id number] MD Amado Kirby (Adult Med) [address] [place] [address] 09/21/2023 14:44:45 09/22/2023 09:33:02 Ulnar neuropathy of left arm 4076468124 03609 G56.22 Health Concerns Section Related Observation LastModified by Organization Detai ls LastModified Time None Recorded Concern Status LastModified by Organization Details LastModified Time None Recorded Advance Directives Directive N: Payers Encounter Date Sequence Insurance Name Policy Number Policy Vargas Covered Member ID Vargas Member ID Guarantor Name 06/15/2022 1 [facility] - MEDICARE SOLUTIONS (MEDICARE REPLACEMENT PPO) [id number] Dwight Carmen Jeison [id number] Dwight Mchugh 06/15/2022 1 [employer] - PRIME (MEDICARE REPLACEMENT/A DVANTAGE - HMO) [id number] 1 Dwight Mchugh [id number] Dwight Mchugh 01/11/2023 1 [facility] - MEDICARE SOLUTIONS (MEDICARE REPLACEMENT PPO) [id number] Dwight Mchugh [id number] Dwight Mchugh 01/11/2023 1 [employer] - PRIME (MEDICARE REPLACEMENT/A DVANTAGE - HMO) [id number] 1 Dwight Mchugh [id number] Dwight Mchugh 04/05/2023 1 [employer] - PRIME (MEDICARE REPLACEMENT/A DVANTAGE - HMO) [id number] 1 Dwight Mchugh [id number] Dwight Mchugh 08/09/2023 1 [employer] - [employer]IME (MEDICARE REPLACEMENT/A DVANTAGE - HMO) [id number] 1 Dwight Mchugh [id number] Dwight Mchugh 09/21/2023 1 [employer] - [employer]IME (MEDICARE REPLACEMENT/A DVANTAGE - HMO) [id number] 1 Dwight Mchugh [id number] Dwight Mchugh Notes Date Note Type Note Provider Name and Address Organization Details Recorded Time 06/15/2022 text/html Office visit,allergic to flomax and tamsulosin. left lower back sore when he goes down stair or certain movement, and when he made GAS with bad odor. advised him to make diary to see which food may make bad odor. Verna Jeffery MD Attn: [address] [place], [address], [facility] 06/15/2022 13:01:05 01/11/2023 text/html Office visit, allergic to flomax and tamsulosin. he is on vitamin C and magnesium citrate 200 mg liquid bid by his own, same as his , No shortness of breath. No chest pain. regular appetite, and twice bowel habit /day. no other complaints. check up and refills of losartan. ROS as noted in HPI. Came with his . Verna Jeffery MD Attn: [address]ing[address] [place], [address], [facility] 01/11/2023 15:45:59 04/05/2023 text/html Office visit, allergic to flomax and tamsulosin. Check up and med refills if any. No chest pain, no shortness of breath, no fever, Regular appetite and bowel habit. ROS as noted in HPI. Verna Jeffery MD Attn: [address]ing[address] [place], [address], [facility] 04/06/2023 10:25:42 08/09/2023 text/html Hand/FingersRepo rt ed bypatient.Hand Dominance:right Location:left Quality:no change Severity:mild Duration:years Timing:chronic Context:cannot identify Alleviating Factors:nothing helps Aggravating Factors:cannot identify Associated Symptoms:no weakness; no swelling; no redness; no warmth; no ecchymosis; no catching/locking; no popping/clicking; no buckling; no grinding; no instability; no radiation; no drainage; no fever; no chills; no weight loss; no change in bowel/bladder habits;numbness;ti ngling Previous Surgery:none Prior Imaging:none Previous Injections:none Previous PT:none Work Related:no Working:noHip(s)Re ported bypatient.Location :left Severity:mild Timing:cannot identify Context:cannot identify Alleviating Factors:position change Aggravating Factors:walking; bending/squatting; ROM Associated Symptoms:no weakness; no numbness; no tingling; no swelling; no redness; no warmth; no ecchymosis; no catching/locking; no popping/clicking; no buckling; no grinding; no instability; no radiation down leg; no drainage; no fever; no chills; no weight loss; no change in bowel/bladder habits Previous Surgery:none Prior Imaging:none Previous Injections:none Previous PT:none Working:Devan todd F/UReported bypatient.Associat ed Symptoms:no dizziness; no lightheadedness; no chest pain; no shortness of breath; no palpitations; no edema; no calf pain with exertion Lifestyle:regular exercise; limiting/avoiding salt Medications:taking medications as directed; no side effects from medication Here with his We needed a doctor I have occasional discomfort in this hip These two fingers 77 y/o right handed WM who was previously under the care of a different provider PMx. BPH, elevated PSA s/p Bx, HTN, decreased hearing, s/p resection of a precancerous skin lesion. During his recent prostate biopsy, he was apparently told that he may have BRENDA. He is here to establish care and complains of left hip pain, which is worse when he bends or walks. He also has chronic numbness of the 4th and 5th fingers of the left hand, he worked at a [employer] until he retired. Genesis Castañeda MD Attn: Accounting[address] [place], [address], [facility] [place] 08/09/2023 16:48:54 09/21/2023 text/html Only these fingers are affected Genesis Castañeda MD Attn: Accounting[address] [place], [address], [facility] 09/21/2023 15:30:20
--- OUTSIDE RECORDS SUMMARY | 2024-03-07 14:22 | XMS_ITS | Referral Summary ---
Author Organization [facility] Address [address] [place] [address] Care Team Providers Care Ict Development Manager Name Role Phone Genesis Castañeda MD Primary Care Provider Source Comments [facility],non-owned Affiliates and Associated Physician Practices is amultiple site organization consisting of ambulatory clinics and hospital sitesin [place], [place], [place] and [place]. This disclosure is being madepursuant to the Care Everywhere program and may not contain all information available regarding this patient. Last updated 17.[facility] InVitae Encounters Date Type Department Care Team Description 12/06/2023 1:20 PM CDT Office Visit [facility] - Dermatology [address] [place] [address], [place] [address] Nedra Warren MD Actinic keratoses (Primary Dx); Lentigines; Seborrheic keratoses from Last 3 Months Allergies Active Allergy Reactions Criticality Noted Date Comments Tamsulosin Other Low 03/04/2015 Dizziness, light headed Medications * Be aware that medications may not be up to date on this document. Alwaysverify current medications with the patient. Medication Sig Dispensed Refills Start Date End Date Status ascorbic acid (VITAMIN C) 500 MG tablet Take 1 (one) tablet by mouth Active Multiple Vitamins-Minerals (MULTIVITAMIN & MINERAL PO) Active SAW PALMETTO, SERENOA REPENS, PO Active VITAMIN A PO Active Calcium Citrate-Vitamin D (CALCIUM + D PO) Take by mouth once daily Active MAGNESIUM CHLORIDE PO Take by mouth once daily Active losartan (COZAAR) 50 MG tablet TAKE ONE TABLET BY MOUTH EVERY DAY FOR BLOOD PRESSURE 08/16/2021 Active Active Problems No known active problems Social History Tobacco Use Types Packs/Day Years Used Date Smoking Tobacco: Never Smokeless Tobacco: Never Alcohol Use Standard Drinks/Week Comments No 0 (1 standard drink = 0.6 oz pur e alcohol) Sex and Gender Information Value Date Recorded Sex Assigned at Not on file Gender Identity Not on file Sexual Orientation Not on file Plan of Treatment Upcoming Encounters Date Type Department Care Team (Late st Contact Info) Description 12/11/2024 10:50 AM [employer]UCK [employer] Office Visit [facility] - Dermatology [address] [place] [address], [place] [id number] Nedra Warren MD [address] [place] [address] [address] [place] [address] Procedures Procedure Name Priority Date/Time Associated Diagnosis Comments [place] DESTROY PREMALIG LESION, 2-14 Routine 12/06/2023 1:43 PM CDT Actinic keratoses [place] DESTROY PREMALIG LESION, 1ST LESION Routine 12/06/2023 1:43 PM CDT Actinic keratoses from Last 3 Months Results * [place] DESTROY PREMALIG LESION, 1ST LESION, [place] DESTROY PREMALIG LESION, 2-14 (12/06/2023 1:43 PM CDT) Narrative Nedra Warren MD - 12/06/2023 1:43 PM CDT Nedra Warren MD ? 12/17/2023 11:50 PM Diagnosis and treatment options discussed. Cryotherapy (Liquid Nitrogen) to 2 lesions for 5-6 seconds each. Number of cycles: 1. Wound care reviewed. Nedra Warren MD PROCEDURE/MINOR SURG ICAL ORDERABLES from Last 3 Months Care Teams Ict Development Manager Relationship Specialty Start Date End Date Genesis Castañeda MD [address] [place] [address] [phone] PCP - General Internal Medicine 12/06/23
--- OUTSIDE RECORDS SUMMARY | 2024-03-07 14:22 | XMS_ITS | Patient Health Summary ---
Author Organization [facility] Address [address] [place] [address] Care Team Providers Care Felled Seam Operator Name Role Phone Genesis Castañeda MD Primary Care Provider Note from [facility],non-owned Affiliates and Associated Physician Practices is amultiple site organization consisting of ambulatory clinics and hospital sitesin [place], [place], [place] and [place]. This disclosure is being madepursuant to the Care Everywhere program and may not contain all information available regarding this patient. Last updated 17.[facility] Allergies * Tamsulosin(Other) -Low Criticality Medications * Be aware that medications may not be up to date on this document. Alwaysverify current medications with the patient. * ascorbic acid (VITAMIN C) 500 MG tablet Take 1 (one) tablet by mouth * Multiple Vitamins-Minerals (MULTIVITAMIN & MINERAL PO) * SANDI KEEN, PO * VITAMIN A PO * Calcium Citrate-Vitamin D (CALCIUM + D PO) Take by mouth once daily * MAGNESIUM CHLORIDE PO Take by mouth once daily * losartan (COZAAR) 50 MG tablet(Started 08/16/2021) TAKE ONE TABLET BY MOUTH EVERY DAY FOR BLOOD PRESSURE Active Problems No known active problems Social History Tobacco Use Types Packs/Day Years Used Date Smoking Tobacco: Never Smokeless Tobacco: Never Alcohol Use Standard Drinks/Week Comments No 0 (1 standard drink = 0.6 oz pur e alcohol) Sex and Gender Information Value Date Recorded Sex Assigned at Not on file Gender Identity Not on file Sexual Orientation Not on file Procedures * VA DESTROY PREMALIG LESION, 2-14(Performed 12/06/2023) Performed for Actinic keratoses * VA DESTROY PREMALIG LESION, 1ST LESION(Performed 12/06/2023) Performed for Actinic keratoses * VA TANGNTL BX SKIN SINGLE LES(Performed 08/25/2021) Performed for Neoplasm of uncertain behavior of skin * DERMATOPATHOLOGY(Performed 08/25/2021) Performed for Neoplasm of uncertain behavior of skin * VA TANGNTL BX SKIN SINGLE LES(Performed 09/12/2018) Performed for Neoplasm of uncertain behavior of skin * VA DESTROY PREMALIG LESION, 1ST LESION(Performed 09/12/2018) Performed for Actinic keratoses * VA DESTROY PREMALIG LESION, 2-14(Performed 09/12/2018) Performed for Actinic keratoses * DERMATOPATHOLOGY(Performed 09/12/2018) Performed for Neoplasm of uncertain behavior of skin Results * VA DESTROY PREMALIG LESION, 1ST LESION, VA DESTROY PREMALIG LESION, 2-14 (12/06/2023 1:43 PM CDT) Narrative Nedra Warren MD - 12/06/2023 1:43 PM CDT Nedra Warren MD ? 12/17/2023 11:50 PM Diagnosis and treatment options discussed. Cryotherapy (Liquid Nitrogen) to 2 lesions for 5-6 seconds each. Number of cycles: 1. Wound care reviewed. Nedra Warren MD PROCEDURE/MINOR SURG ICAL ORDERABLES * VA TANGNTL BX SKIN SINGLE LES (08/25/2021 5:09 PM CDT) Narrative Nedra Warren MD - 08/25/2021 5:09 PM CDT Nedra Warren MD ? 08/29/2021 ??4:09 PM Risks, benefits and alternatives to shave biopsy were discussed with the patient. Pt understands the possibility for the following: Bleeding, infection, scar, the possibility of non-diagnostic reading and the potential need for further testing or treatment, including surgical. Stated clearly the size of the specimen and the need to obtain adequate tissue for the most accurate path reading. Pt accepts all of above, verbal consent was obtained. Location: ??Left upper cutaneous lip Skin prep: Alcohol Anesthesia: 1% lidocaine with epinephrine Hemostasis: Aluminum chloride and hyfrecator Dressing and wound care discussed Nedra Warren MD PROCEDURE/MINOR SURG ICAL ORDERABLES * DERMATOPATHOLOGY (08/25/2021 3:33 AM CDT) Only the most recent of2 resultswithin the time period is included. Case Report Dermatopathology Report ? Case: [id number] ? Authorizing Provider: ??Nedra Warren MD ?Collected: ? 08/25/2021 03:33 AM ? Ordering Location: ? [facility] ?Received: ?08/26/2021 10:19 AM ? Dermatology ? Pathologist: ? Anjelica Maciel MD ? Specimen: ?Skin, left upper cutaneous lip ? 2 1:44 PM CDT DERMATOPATHOLOGY LABORATORY Final Diagnosis Specimen A. SKIN, left upper cutaneous lip: BENIGN VERRUCOUS KERATOSIS, INFLAMED (L82.1) 2 1:44 PM CDT DERMATOPATHOLOGY LABORATORY Clinical History VV vs. r/o SCC 2 1:44 PM CDT DERMATOPATHOLOGY LABORATORY Gross Description Specimen A: Received is one formalin filled container labeled with the patient's name and designated left upper cutaneous lip. The specimen consists of a shave biopsy measuring [id number]. Jar 0. 2 1:44 PM CDT DERMATOPATHOLOGY LABORATORY Microscopic Description Specimen A. SKIN, left upper cutaneous lip: Sections show hyperkeratosis, papillomatosis, hypergranulosis, and acanthosis. Inflammatory cells are present within the dermis. These histological findings can be seen in a verruca vulgaris or a seborrheic keratosis. 2 1:44 PM CDT DERMATOPATHOLOGY LABORATORY Disclaimer An external and internal positive and negative controls are appropriate for the histochemical, immunohistochemical and immunofluorescence stain(s) in this case (if any), except where stated explicitly. The performance characteristics of the stain(s) cited in this report were developed and its performance characteristic determined by the Dermatopathology Laboratory at [facility], directed by Dr. Charo Lang. These tests need not be, and therefore are not, approved by the [place] Food and Drug Administration. The tests are used for clinical purposes. Billing Codes Specimen Charges Stain Charges 39475 1 2 1:44 PM CDT DERMATOPATHOLOGY LABORATORY Embedded Images 2 1:44 PM CDT DERMATOPATHOLOGY LABORATORY Pathology/Cytolo gy TISSUE SPECIMEN FROM SKIN / Unknown 08/25/2021 3:33 AM CDT 08/26/2021 10:19 AM CDT Nedra Warren MD LAB - PATHOLOGY/CYTO LOGY ORDERABLES DERMATOPATHOLOGY LABORATORY [facility] - Department of Dermatology [address], [address] [phone] * VA TANGNTL BX SKIN SINGLE LES (09/12/2018 2:30 PM CDT) Nedra Garcia MD - 09/12/2018 2:30 PM CDT Gloria Campuzano, DO ? 09/12/2018 ??2:30 PM Risks, benefits and alternatives to shave biopsy were discussed with the patient. Verbal consent was obtained. Encounter Diagnoses Name Primary? ? ? Multiple benign nevi of upper and lower extremities, and trunk Yes ? ? Seborrheic keratoses ? Lentigines ? Neoplasm of uncertain behavior of skin ? Actinic keratoses ?? Location: R upper back Skin prep: Alcohol Anesthesia: 1% lidocaine with epinephrine Hemostasis: Aluminum chloride Dressing and wound care discussed. Specimen(s) placed in a patient labeled container and sent to [facility] Dermatopathology. Patient agrees to phone call for results and message if not available. Gloria Campuzano DO Nedra Warren MD PROCEDURE/MINOR SURG ICAL ORDERABLES * VA DESTROY PREMALIG LESION, 2-14, VA DESTROY PREMALIG LESION, 1ST LESION (09/12/2018 2:29 PM CDT) Nedra Garcia MD - 09/12/2018 2:29 PM CDT Gloria Campuzano, DO ? 09/12/2018 ??2:30 PM Diagnosis and treatment options discussed. Cryotherapy (Liquid Nitrogen) to 2 lesions (R cheek) for 3 seconds each. Number of cycles: 1. Wound care reviewed. Nedra Warren MD PROCEDURE/MINOR SURG ICAL ORDERABLES Care Teams Felled Seam Operator Relationship Specialty Start Date End Date Genesis Castañeda MD [address] [place], [place] [phone] PCP - General Internal Medicine 12/06/23
--- OUTSIDE RECORDS SUMMARY | 2024-03-07 14:22 | XMS_ITS | Clinical Summary ---
Author Organization [facility] Address [address] [place] [address] Care Team Providers Care Rn Review Name Role Phone Genesis Castañeda MD Primary Care Provider Source Comments [facility],non-owned Affiliates and Associated Physician Practices is amultiple site organization consisting of ambulatory clinics and hospital sitesin [place], [place], [place] and [place]. This disclosure is being madepursuant to the Care Everywhere program and may not contain all information available regarding this patient. Last updated 17.[facility] Allergies Active Allergy Reactions Criticality Noted Date [...] Multiple Vitamins-Minerals (MULTIVITAMIN & MINERAL PO) Active SANDI KEEN, PO Active VITAMIN A PO Active Calcium Citrate-Vitamin D (CALCIUM + D PO) Take by mouth once daily Active MAGNESIUM CHLORIDE PO Take by mouth once daily Active losartan (COZAAR) 50 MG tablet TAKE ONE TABLET BY MOUTH EVERY DAY FOR BLOOD PRESSURE 08/16/2021 Active Active Problems No known active problems Encounters Date Type Department Care Team Description 12/06/2023 1:20 PM CDT Office Visit [facility] - Dermatology [address] [place] [address], [address] [place] [phone] Nedra Warren MD Actinic keratoses (Primary Dx); Lentigines; Seborrheic keratoses from Last 3 Months Family History Medical History Relation Name Comments Allergy (Severe) Neg Hx CVA Neg Hx Cancer Neg Hx Cancer - Breast Neg Hx Cancer - Skin, Melanoma Neg Hx Cancer - Skin, Non Melanoma Neg Hx Eczema Neg Hx Hemophilia Neg Hx Psoriasis Neg Hx Rashes/Skin Problems Neg Hx Social History Tobacco Use Types Packs/Day Years [...] st Contact Info) Description 12/11/2024 10:50 AM 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 DIRECTOR [facility] - Dermatology [address] [place] [address], [place] [phone] Nedra Warren MD [address] [place] [address] [address] DE[place] [phone] Health Maintenance Due Date Last Done Comments HEPATITIS C SCREENING 11/12/1964 DTAP/TDAP/TD VACCINES (1 - Tdap) 1965 PNEUMOCOCCAL VACCINE 50+ (1 of 1 - PCV) 1996 ZOSTER VACCINE (1 of 2) 1996 Respiratory Syncytial Virus (RSV) Vaccine Pt: or over 60 yrs (1 - 1-dose 75+ series) 2021 COVID-19 VACCINE (3 - 2023-2 5 season) 2023 05/27/2020, 04/29/2020 INFLUENZA VACCINE (#1) 2023 6, 12/18/2014 DEPRESSION SCREENING 02/07/2024 MEDICARE AWV ? CALENDAR YEAR 2024 HEPATITIS B VACCINE Aged Out No longe r eligible based on patient's age to complete this topic HIB VACCINE Aged Out No longer eligi ble based on patient's age to complete this topic HPV VACCINE Aged Out No longer eligi ble based on patient's age to complete this topic MENINGOCOCCAL (Group B) VACCINE Aged Out No longer eligible b ased on patient's age to complete this topic MENINGOCOCCAL VACCINE Aged Out No adriel richmond eligible based on patient's age to complete this topic Procedures Procedure Name Priority Date/Time Associated Diagnosis Comments UT DESTROY PREMALIG LESION, 2-14 Routine 12/06/2023 1:43 PM CDT Actinic keratoses UT DESTROY PREMALIG LESION, 1ST LESION Routine 12/06/2023 1:43 PM CDT Actinic keratoses from Last 3 Months Results * UT DESTROY PREMALIG LESION, 1ST LESION, UT DESTROY PREMALIG LESION, 2-14 (12/06/2023 1:43 PM CDT) Narrative Nedra Warren MD - 12/06/2023 1:43 PM CDT Nedra Warren MD ? 12/17/2023 11:50 PM Diagnosis and treatment options discussed. Cryotherapy (Liquid Nitrogen) to 2 lesions for 5-6 seconds each. Number of cycles: 1. Wound care reviewed. Nedra Warren MD PROCEDURE/MINOR SURG ICAL ORDERABLES from Last 3 Months Care Teams Rn Review Relationship Specialty Start Date End Date Genesis Castañeda MD [address] [place] [phone] PCP - General Internal Medicine 12/06/23
== END 2024-03-07 13:39 | disposition home or self-care (01) ==
PROVIDERS: PCP Internal Medicine Infectious Disease; Visit Provider Radiology Radiation Oncology
DX: C61 Malignant neoplasm of prostate (principal)
CPT/HCPCS: 78815; A9596